=== PATIENT | male | born 2000 | race Caucasian/White ===

== ENCOUNTER 2020-10-27 10:20 | Emergency (ER) | payer OTHER ==
[~2020-10-27] VITALS: Ht 180.3 cm; Wt 89.5 kg
[2020-10-27 11:06] VITALS: BP 122/80
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
[2020-10-27] MEDS ORDERED: IBUP80TA PO (14:05)
== END 2020-10-27 14:48 | disposition home or self-care (01) ==
LOC: M ED 10:20
DX: M25.552 Pain in left hip (principal); V03.10XA Pedestrian on foot injured in collision with car, pick-up truck or van in traffic accident, initial encounter; F17.200 Nicotine dependence, unspecified, uncomplicated